=== PATIENT | male | born 1935 | race Two or more races ===

== ENCOUNTER 2016-07-20 13:10 | Inpatient (IN) | payer MEDICARE, BC ==
[~2016-07-20] VITALS: Ht 175.3 cm; Wt 83.7 kg
--- NOTE | ~2016-07-20 | DS ---
PATIENT'S NAME: BAO MOON [facility] AGE: 81 Y [address] ROOM: [address] [place], [place] [address] LOCATION: GPCU ADMIT DATE: 07/15/2016 Discharge Summary DISCHARGE DATE: 07/20/2016 FAMILY PHYSICIAN: Anselmo Colmenares MD ATTENDING PHYSICIAN: Anselmo Colmenares This will also service the admission note for TCU. DISPOSITION: Transitional care unit. DIAGNOSES: Acute coronary syndrome with coronary artery disease, status post stent placement. SECONDARY DIAGNOSES: 1. Rhabdomyolysis. 2. Benign prostatic hyperplasia. 3. History of prostate cancer. 4. Hypertension. 5. Hyperlipidemia. Physicians following him while he is in TCU: Dr. Colmenares. Therapies: PT and OT were ordered. The patient is aware of situation. DISCHARGE MEDICATIONS: Include, 1. Aspirin 81 mg daily. 2. Vitamin D 4000 units p.o. daily. 3. Vitamin B12 at 1000 mcg daily. 4. Metoprolol tartrate 50 mg p.o. twice daily. 5. Sulfasalazine tablet 1000 mg twice daily, which is 2 of the 500s. 6. Tamsulosin 0.4 mg daily. 7. Brilinta 90 mg p.o. twice daily. 8. Trazodone 50 mg to 100 mg at night prior to bedtime. 9. Tylenol 650 every 4 hours as needed. 10. Benadryl 25 mg at night as needed. 11. Colace 100 mg p.o. twice daily as needed. 12. Nitrostat 0.4 mg sublingually p.r.n. as needed. 13. We will continue his normal vitamin D3 which is 4000 units p.o. daily. HISTORY OF PRESENT ILLNESS: The patient is a 27-year-old male, who was trying to get up out of bed and he had a fall. His son found him face first on the floor and was unable to get him up. He complained of some numbness on the right side of his body, especially his arm and also both legs. He said that has been going on for about the last 1 to 2 months, it was treated or evaluated in clinic without more to be a neuropathy type thing. He has had a slight cough, but no other complaints, denies any seizure activity. PATIENT'S NAME: BAO MOON [facility] AGE: 81 Y [address] ROOM: [address] [place], [place] [address] LOCATION: GPCU ADMIT DATE: 07/15/2016 Discharge Summary DISCHARGE DATE: 07/20/2016 FAMILY PHYSICIAN: Anselmo Colmenares MD ATTENDING PHYSICIAN: Anselmo Colmenares INITIAL LABORATORY DATA: His lactate was 5.2. Head CT was showed no acute process. Chest x-ray was normal. CBC showed a white count of 9100, hemoglobin 12.2, and 83% segs. CMS showed creatinine of 1.9, BUN of 22, GFR was 34. CPK was 932, CK-MB was 2.3. Troponin was 0.146. His thyroid was normal. ProBNP was 357, procalcitonin was 0.13, repeat CK was 2842. Troponin went up to 1.440, repeat lactate was down to 1.8. Urinalysis showed 250 blood, 3+ amorphous, otherwise clear. The patient was admitted to the hospital. Heparin was started due to the elevated troponin and Cardiology consultation was obtained. Physical therapy was consulted to evaluate the patient to treat his weakness. HOSPITAL COURSE: The patient was admitted as discussed and was diagnosed with an acute coronary syndrome, but also rhabdomyolysis. He was treated with IV hydration, his enzymes were monitored, Cardiology consultation was obtained. They ordered an echo along with carotid Doppler. The patient was placed on fall precautions. As I mentioned, the patient was hydrated with normal saline and a urine myoglobin was obtained. The patient's situation seemed to overall improve. I started seeing him on July 16. He had the elevated cardiac enzymes along with possible acute coronary syndrome. CT of his head did show ventriculomegaly and obviously that brought up the possibility of normal pressure hydrocephalus with the fact that he had the fall. We worked on hydrating the patient, controlling blood pressure. A PICC line was placed due to the fact that was a difficult to IV stick. His echo showed EF of 55% to 60%. He did have a hypernatremia that improved with gradual hydration. His acute care coronary injury and that was thought secondary to dehydration and his rhabdomyolysis. The patient's situation seemed to overall stabilize. We continue to follow his lab work. We got PT and OT involved with the patient. The patient then underwent a nuclear stress test. Stress test was positive, so they elected to proceed with a cath, his kidney function had returned to normal. He was pre-hydrated for his cath. The patient underwent a cardiac catheterization. He was found to have a significant RCA lesion and a drug- eluting coronary stent was placed in his RCA. The patient overall tolerated this well. The patient was started on the Brilinta. We continued to monitor his cardiac status and patient's situation seemed to overall improve. We thought it best due to the fact that he was feeling a little weak, that we go ahead plan on dismissing him to transitional care unit to try to gain some strength. On 07/20/2016, he was transferred to the transitional care unit. The plan there is to help the patient gain back his strength and that so he can return to home. PATIENT'S NAME: BAO MOON [facility] AGE: 81 Y [address] ROOM: [address] [address] LOCATION: GPCU ADMIT DATE: 07/15/2016 Discharge Summary DISCHARGE DATE: 07/20/2016 FAMILY PHYSICIAN: Anselmo Colmenares MD ATTENDING PHYSICIAN: Anselmo Colmenares MD DAS/modl /[id number] [facility] d: 08/18/162051 t: 09/13/16 1554, DISCHARGE SUMMARY
--- NOTE | ~2016-07-20 | DS ---
PATIENT'S NAME: BAO MOON [facility] AGE: 81 Y [address] ROOM: [address] [place], [place] [address] LOCATION: GPCU ADMIT DATE: 07/15/2016 Discharge Summary DISCHARGE DATE: 07/20/2016 FAMILY PHYSICIAN: Anselmo Colmenares MD ATTENDING PHYSICIAN: Anselmo Colmenares This will also service the admission note for TCU. DISPOSITION: Transitional care unit. DIAGNOSES: Acute coronary syndrome with coronary artery disease, status post stent placement. SECONDARY DIAGNOSES: 1. Rhabdomyolysis. 2. Benign prostatic hyperplasia. 3. History of prostate cancer. 4. Hypertension. 5. Hyperlipidemia. Physicians following him while he is in TCU: Dr. Colmenares. Therapies: PT and OT were ordered. The patient is aware of situation. DISCHARGE MEDICATIONS: Include, 1. Aspirin 81 mg daily. 2. Vitamin D 4000 units p.o. daily. 3. Vitamin B12 at 1000 mcg daily. 4. Metoprolol tartrate 50 mg p.o. twice daily. 5. Sulfasalazine tablet 1000 mg twice daily, which is 2 of the 500s. 6. Tamsulosin 0.4 mg daily. 7. Brilinta 90 mg p.o. twice daily. 8. Trazodone 50 mg to 100 mg at night prior to bedtime. 9. Tylenol 650 every 4 hours as needed. 10. Benadryl 25 mg at night as needed. 11. Colace 100 mg p.o. twice daily as needed. 12. Nitrostat 0.4 mg sublingually p.r.n. as needed. 13. We will continue his normal vitamin D3 which is 4000 units p.o. daily. HISTORY OF PRESENT ILLNESS: The patient is a 27-year-old male, who was trying to get up out of bed and he had a fall. His son found him face first on the floor and was unable to get him up. He complained of some numbness on the right side of his body, especially his arm and also both legs. He said that has been going on for about the last 1 to 2 months, it was treated or evaluated in clinic without more to be a neuropathy type thing. He has had a slight cough, but no other complaints, denies any seizure activity. PATIENT'S NAME: BAO MOON [facility] AGE: 81 Y [address] ROOM: [address] [place], [place] [address] LOCATION: GPCU ADMIT DATE: 07/15/2016 Discharge Summary DISCHARGE DATE: 07/20/2016 FAMILY PHYSICIAN: Anselmo Colmenares MD ATTENDING PHYSICIAN: Anselmo Colmenares INITIAL LABORATORY DATA: His lactate was 5.2. Head CT was showed no acute process. Chest x-ray was normal. CBC showed a white count of 9100, hemoglobin 12.2, and 83% segs. CMS showed creatinine of 1.9, BUN of 22, GFR was 34. CPK was 932, CK-MB was 2.3. Troponin was 0.146. His thyroid was normal. ProBNP was 357, procalcitonin was 0.13, repeat CK was 2842. Troponin went up to 1.440, repeat lactate was down to 1.8. Urinalysis showed 250 blood, 3+ amorphous, otherwise clear. The patient was admitted to the hospital. Heparin was started due to the elevated troponin and Cardiology consultation was obtained. Physical therapy was consulted to evaluate the patient to treat his weakness. HOSPITAL COURSE: The patient was admitted as discussed and was diagnosed with an acute coronary syndrome, but also rhabdomyolysis. He was treated with IV hydration, his enzymes were monitored, Cardiology consultation was obtained. They ordered an echo along with carotid Doppler. The patient was placed on fall precautions. As I mentioned, the patient was hydrated with normal saline and a urine myoglobin was obtained. The patient's situation seemed to overall improve. I started seeing him on July 16. He had the elevated cardiac enzymes along with possible acute coronary syndrome. CT of his head did show ventriculomegaly and obviously that brought up the possibility of normal pressure hydrocephalus with the fact that he had the fall. We worked on hydrating the patient, controlling blood pressure. A PICC line was placed due to the fact that was a difficult to IV stick. His echo showed EF of 55% to 60%. He did have a hypernatremia that improved with gradual hydration. His acute care coronary injury and that was thought secondary to dehydration and his rhabdomyolysis. The patient's situation seemed to overall stabilize. We continue to follow his lab work. We got PT and OT involved with the patient. The patient then underwent a nuclear stress test. Stress test was positive, so they elected to proceed with a cath, his kidney function had returned to normal. He was pre-hydrated for his cath. The patient underwent a cardiac catheterization. He was found to have a significant RCA lesion and a drug- eluting coronary stent was placed in his RCA. The patient overall tolerated this well. The patient was started on the Brilinta. We continued to monitor his cardiac status and patient's situation seemed to overall improve. We thought it best due to the fact that he was feeling a little weak, that we go ahead plan on dismissing him to transitional care unit to try to gain some strength. On 07/20/2016, he was transferred to the transitional care unit. The plan there is to help the patient gain back his strength and that so he can return to home. PATIENT'S NAME: BAO MOON [facility] AGE: 81 Y [address] ROOM: [address] [address] LOCATION: GPCU ADMIT DATE: 07/15/2016 Discharge Summary DISCHARGE DATE: 07/20/2016 FAMILY PHYSICIAN: Anselmo Colmenares MD ATTENDING PHYSICIAN: Anselmo Colmenares MD DAS/modl /[id number] CC: [facility] d: t: 08/21/16 0632, DISCHARGE SUMMARY
--- NOTE | ~2016-07-20 | DS ---
PATIENT'S NAME: BAO MOON [facility] AGE: 81 Y [address] ROOM: [address] [place], [place] [address] LOCATION: GPCU ADMIT DATE: 07/15/2016 Discharge Summary DISCHARGE DATE: 07/20/2016 FAMILY PHYSICIAN: Anselmo Colmenares MD ATTENDING PHYSICIAN: Anselmo Colmenares This will also service the admission note for TCU. DISPOSITION: Transitional care unit. DIAGNOSES: Acute coronary syndrome with coronary artery disease, status post stent placement. SECONDARY DIAGNOSES: 1. Rhabdomyolysis. 2. Benign prostatic hyperplasia. 3. History of prostate cancer. 4. Hypertension. 5. Hyperlipidemia. Physicians following him while he is in TCU: Dr. Colmenares. Therapies: PT and OT were ordered. The patient is aware of situation. DISCHARGE MEDICATIONS: Include, 1. Aspirin 81 mg daily. 2. Vitamin D 4000 units p.o. daily. 3. Vitamin B12 at 1000 mcg daily. 4. Metoprolol tartrate 50 mg p.o. twice daily. 5. Sulfasalazine tablet 1000 mg twice daily, which is 2 of the 500s. 6. Tamsulosin 0.4 mg daily. 7. Brilinta 90 mg p.o. twice daily. 8. Trazodone 50 mg to 100 mg at night prior to bedtime. 9. Tylenol 650 every 4 hours as needed. 10. Benadryl 25 mg at night as needed. 11. Colace 100 mg p.o. twice daily as needed. 12. Nitrostat 0.4 mg sublingually p.r.n. as needed. 13. We will continue his normal vitamin D3 which is 4000 units p.o. daily. HISTORY OF PRESENT ILLNESS: The patient is a 27-year-old male, who was trying to get up out of bed and he had a fall. His son found him face first on the floor and was unable to get him up. He complained of some numbness on the right side of his body, especially his arm and also both legs. He said that has been going on for about the last 1 to 2 months, it was treated or evaluated in clinic without more to be a neuropathy type thing. He has had a slight cough, but no other complaints, denies any seizure activity. PATIENT'S NAME: BAO MOON [facility] AGE: 81 Y [address] ROOM: [address] [place], [place] [address] LOCATION: GPCU ADMIT DATE: 07/15/2016 Discharge Summary DISCHARGE DATE: 07/20/2016 FAMILY PHYSICIAN: Anselmo Colmenares MD ATTENDING PHYSICIAN: Anselmo Colmenares INITIAL LABORATORY DATA: His lactate was 5.2. Head CT was showed no acute process. Chest x-ray was normal. CBC showed a white count of 9100, hemoglobin 12.2, and 83% segs. CMS showed creatinine of 1.9, BUN of 22, GFR was 34. CPK was 932, CK-MB was 2.3. Troponin was 0.146. His thyroid was normal. ProBNP was 357, procalcitonin was 0.13, repeat CK was 2842. Troponin went up to 1.440, repeat lactate was down to 1.8. Urinalysis showed 250 blood, 3+ amorphous, otherwise clear. The patient was admitted to the hospital. Heparin was started due to the elevated troponin and Cardiology consultation was obtained. Physical therapy was consulted to evaluate the patient to treat his weakness. HOSPITAL COURSE: The patient was admitted as discussed and was diagnosed with an acute coronary syndrome, but also rhabdomyolysis. He was treated with IV hydration, his enzymes were monitored, Cardiology consultation was obtained. They ordered an echo along with carotid Doppler. The patient was placed on fall precautions. As I mentioned, the patient was hydrated with normal saline and a urine myoglobin was obtained. The patient's situation seemed to overall improve. I started seeing him on July 16. He had the elevated cardiac enzymes along with possible acute coronary syndrome. CT of his head did show ventriculomegaly and obviously that brought up the possibility of normal pressure hydrocephalus with the fact that he had the fall. We worked on hydrating the patient, controlling blood pressure. A PICC line was placed due to the fact that was a difficult to IV stick. His echo showed EF of 55% to 60%. He did have a hypernatremia that improved with gradual hydration. His acute care coronary injury and that was thought secondary to dehydration and his rhabdomyolysis. The patient's situation seemed to overall stabilize. We continue to follow his lab work. We got PT and OT involved with the patient. The patient then underwent a nuclear stress test. Stress test was positive, so they elected to proceed with a cath, his kidney function had returned to normal. He was pre-hydrated for his cath. The patient underwent a cardiac catheterization. He was found to have a significant RCA lesion and a drug- eluting coronary stent was placed in his RCA. The patient overall tolerated this well. The patient was started on the Brilinta. We continued to monitor his cardiac status and patient's situation seemed to overall improve. We thought it best due to the fact that he was feeling a little weak, that we go ahead plan on dismissing him to transitional care unit to try to gain some strength. On 07/20/2016, he was transferred to the transitional care unit. The plan there is to help the patient gain back his strength and that so he can return to home. PATIENT'S NAME: BAO MOON [facility] AGE: 81 Y [address] ROOM: [address] [address] LOCATION: GPCU ADMIT DATE: 07/15/2016 Discharge Summary DISCHARGE DATE: 07/20/2016 FAMILY PHYSICIAN: Anselmo Colmenares MD ATTENDING PHYSICIAN: Anselmo Colmenares MD DAS/modl /[id number] CC: [facility] d: t: 08/21/16 0634, DISCHARGE SUMMARY
--- NOTE | ~2016-07-20 | DS ---
PATIENT'S NAME: SARAI [facility] AGE: 81 Y [address] ROOM: [place] [address] LOCATION: [facility] ADMIT DATE: 07/20/2016 Discharge Summary DISCHARGE DATE: 07/23/2016 FAMILY PHYSICIAN: Kary Ortiz MD ATTENDING PHYSICIAN: Anselmo Colmenares DISCHARGE DIAGNOSES: 1. Status post acute coronary syndrome, status post stent placement. 2. Rhabdomyolysis with weakness. 3. Fall. 4. History of prostate cancer. 5. Hypertension. 6. Hyperlipidemia. FOLLOWUP: Follow up is with Dr. Colmenares in 10-14 days and Cardiology in 2 weeks. DISCHARGE MEDICATIONS: Include: 1. Aspirin 81 mg daily. 2. Vitamin D3 4000 units daily. 3. Vitamin B12 1000 mcg daily. 4. Metoprolol tartrate 50 mg twice daily. 5. Sulfasalazine 500 mg 2 of them twice daily. 6. Tamsulosin 0.4 mg daily in the p.m. 7. Brilinta 90 mg twice daily. 8. Trazodone 50-100 mg p.o. at h.s. as needed for sleep. 9. Tylenol 650 every 4-6 hours as needed for pain. HISTORY OF PRESENT ILLNESS: The patient was initially admitted to the acute care side of the hospital and diagnosed with acute coronary syndrome and ultimately ended up getting a stent placed in his RCA, it was a drug-eluting stent. He was placed on Brilinta and a baby aspirin after this. He also during his acute stay was diagnosed with rhabdomyolysis which they thought was secondary to his fall. This did improve over time. He was initially hydrated, and once his cardiac situation was stable, he was transferred to transitional care unit to continue to work on recovery from the rhabdomyolysis with muscle weakness. The patient's situation turned around rapidly in transitional care unit. He made great progress every day with PT and OT and on 07/23/2016 was ready to go home with the above-mentioned medicines. CONDITION ON DISCHARGE: Good. He is to continue outpatient therapy. Follow up is as mentioned above. PATIENT'S NAME: SARAI [facility] AGE: 81 Y [address] ROOM: [place] [address] LOCATION: [facility] ADMIT DATE: 07/20/2016 Discharge Summary DISCHARGE DATE: 07/23/2016 FAMILY PHYSICIAN: Kary Ortiz MD ATTENDING PHYSICIAN: Anselmo Colmenares MD SANDHYA PRINGLE/kavithal /[id number] d: 08/18/16 2306 t: 09/13/16 1551, DISCHARGE SUMMARY
[~2016-07-20 13:10] MED LIST: DESYREL50 MG PO; SULFASALAZINE500 M1 PO; TOPROL XL 5050 MG PO; VITAMIN B-121000 MCG PO; VITAMIN D-32000 UNI1 PO
--- NOTE | 2016-07-20 14:41 | NUR ---
D: Nursing Admission Summary From PCU I: Nursing interventions provided to support the patient's individual plan of care R: MOBILITY-- 1 assist. May use walker if needed. Good stability. NUTRITION-- Cardiac diet, decent appetite. SKIN/INCISIONS/WOUNDS-- Multiple abrasions to head, arms, knees, leg. All scabbed and healing in different stages. SELF CARES-- Able to do most all self care activities, may need some set up BOWEL/BLADDER-- Continent of bowel and bladder. Last BM today. Needs to stand to use urinal to start stream. RESPIRATORY-- Clear and diminished throughout, may have oxygen if saturations drop below 90%. PAIN-- No complaints of pain at this time. PSYCHOSOCIAL-- Patient takes medicine to help sleep, good support system. COGNITION-- Alert and oriented x 3. SPECIAL NEEDS-- BLEEDING-- No issues at this time. SENSORY IMPAIRMENTS/DENTAL NEEDS: Glasses to help with reading. TEACHING NEEDS-- INFECTION CONCERNS: Right radial access for stent RISK FOR ELOPEMENT: none NEED FOR BED/MOVEMENT ALARM: per protocol DISMISSAL PLANS: home with . Other: P: Current plan of care reviewed and updated 07/20/16 LUCIA RIGGS
--- NOTE | 2016-07-21 04:15 | NUR ---
A/O x 3. Irritable. Cooperative. IV H.L. RFA. GEOVANNA - 2 LUMEN PICC. SCD. TEDS. Cardiac diet. Doctor in to see patient. Orders written. Lab for pre-albumin ordered and drawn this morning. Continent of B/B. Urgency symptoms for urination. Rested well.
--- NOTE | 2016-07-21 12:14 | NUR ---
Significant Event: Alert/oriented. VSS. Mod I in room per PT. Left PICC intact, no complications. SL to right FA, flushing. Denies pain. Able to make needs known. Follow up:
--- NOTE | 2016-07-22 01:53 | NUR ---
Significant Event: Alert & oriented. MOD I in room. Rt FA saline lock and LT upper arm PICC line. Is ready to go home. VSS. Wears Nora hose. EATS well. Follow up:
--- NOTE | 2016-07-22 13:22 | NUR ---
Significant Event: Alert/oriented. VSS. Mod I in room. Left picc intact, no complications. Tylenol this am for headache. Wants to go home tariq. Follow up:
--- NOTE | 2016-07-22 22:52 | NUR ---
Significant Event: Alert & oriented. MOD I in room. Pleasant & cooperative. Saline lock to rt FA that flushes well. PIcc to lt upper arm and flushes well with good blood return. VSS. Wears JELENA hose and leg pumps. Denies pain. HE wants to go home saturday! Acitivity gregg, I see no reason why he couldn't. He gets along well. EAts well. He wants to see the saturday am to see about going home. Follow-up: See this morning.
[2016-07-23 05:35] LABS: HEMOGLOBIN 10.5 g/dL (11.0-16.0); MCH 28.5 pg (27.0-34.0); MCHC 32.8 gm/dL (32.0-36.5); MCV 86.7 fl (83.0-98.0); MPV 9.7 fl (9.4-12.4); RBC 3.69 M/uL (3.50-5.50); RDW-CV 13.3 % (11.9-14.6); WBC 4.2 K/uL (4.0-11.0)
[2016-07-23 05:51] LABS: ANION GAP 13.9 (10.0-19.0); BLOOD UREA NITROGEN 10 mg/dL (6-24); CHLORIDE 104 mMol/L (96-110); CO2 25 mMol/L (22-32); CPK 349 IU/L (35-332); ESTIMATED GFR (MDRD EQUATION) > 60; POTASSIUM 3.9 mMol/L (3.7-5.1); SODIUM 139 mMol/L (135-145)
[2016-07-23 05:55] LABS: PLATELET COUNT 240 K/uL (150-450)
[2016-07-23 06:21] LABS: ABSOLUTE NEUTROPHIL CT (ANC) 2.7 K/uL (1.4-9.0); BANDED NEUTROPHILS % 1 %; LYMPHOCYTE # 0.9 K/uL (0.8-4.0); LYMPHOCYTE % 21 %; MONOCYTE # 0.4 K/uL (0.0-1.0); SEGMENTED NEUTROPHIL # 2.7 K/uL (1.4-9.0); SEGMENTED NEUTROPHIL % 63 %
--- NOTE | 2016-07-23 09:57 | NUR ---
D: Nursing Dismissal Summary I: Nursing interventions provided to support the patient's individual plan of care R: MOBILITY-- independent in room with cane NUTRITION-- Cardiac diet SKIN/INCISIONS/WOUNDS-- scattered bruises and abrasions to upper and lower extremities. SELF CARES-- able to perform self cares independently BOWEL/BLADDER-- Continent of bowel and bladder RESPIRATORY-- on room air PAIN-- no complaints PSYCHOSOCIAL-- good family support COGNITION-- alert and oriented SPECIAL NEEDS-- will have home health for physical therapy SENSORY IMPAIRMENTS/DENTAL NEEDS: wears glasses DISMISSAL PLANS: to home today with home health physical therapy Other: P: Current plan of care reviewed and updated Marlen Faith RN 07/23/16
[2016-07-23] MEDS ORDERED: ASPIRIN (CHILDR81 MG PO (10:25)
[2016-07-23] MEDS ORDERED: FLOMAX0.4 MG PO (10:26)
[2016-07-23] MEDS ORDERED: BRILINTA90 MG PO (10:28)
[2016-07-23] MEDS ORDERED: TYLENOL325 MG PO (10:29)
--- NOTE | 2016-07-23 10:30 | NUR ---
referral for [facility] upon d/c for PT. NEETU met with patient, and daughter Neda [phone]. patient had no preference for [facility] agency. NEETU contacted Caty with [facility] [phone], and referral relayed. faxed documentation to fax [phone]. family will obtain cane from [employer] or will purchase one from [employer]. plan d/c to home today with in [place], has a supportive family. have medicare and a supplemental policy.
[2017-02-28] MEDS ORDERED: FLORINEF0.1 MG PO (20:21)
== END 2016-07-23 11:30 | disposition disaster alternative care site (69) | DRG 949 ==
LOC: GSNF 13:10
PROVIDERS: ADMIT Obstetrics & Gynecology Obstetrics
DX: Z48.89 Encounter for other specified surgical aftercare (principal); M62.82 Rhabdomyolysis; I25.10 Atherosclerotic heart disease of native coronary artery without angina pectoris; N40.0 Benign prostatic hyperplasia without lower urinary tract symptoms; Z85.46 Personal history of malignant neoplasm of prostate; Z79.82 Long term (current) use of aspirin; Z91.81 History of falling
CPT/HCPCS: A9270

== ENCOUNTER 2017-02-02 06:06 | Observation (INO) | payer MEDICARE, BC ==
[~2017-02-02] VITALS: Ht 175.3 cm; Wt 77.4 kg
--- NOTE | ~2017-02-02 | ER ---
PATIENT'S NAME: [facility]AI [facility] AGE: 81 Y [address] ROOM: [place] [address] LOCATION: GPCU ADMIT DATE: 02/02/2017 ER/Outpatient Report DISCHARGE DATE: FAMILY PHYSICIAN: Anselmo Colmenares MD ATTENDING PHYSICIAN: Andreea Rush Time of Arrival: 0606 hours. Time of Evaluation: 0616 hours. IDENTIFICATION: An 81-year-old male. CHIEF COMPLAINT: Heart problems. HISTORY OF PRESENT ILLNESS: The patient is an 81-year-old male who woke up this morning feeling dizzy, had a spinning sensation and fell to the floor. He did not hit his head. No loss of consciousness. No injuries from the fall. He has been dizzy off and on for the last couple of months and actually saw Dr. Colmenares recently for this. It was recommended that he stop his trazodone which he has not completely but he has decreased it from 2 to 1 tablet. He had nausea and weakness this morning. No chest pain, some shortness of breath. No diaphoresis. ALLERGIES: TO GRAPEFRUIT. CURRENT MEDICATIONS: 1. Brilinta 90 mg b.i.d. 2. Vitamin D3 2000 international units 2 tablets daily. 3. Atorvastatin 40 mg at h.s. 4. Enteric-coated aspirin 81 mg daily. 5. Tamsulosin 0.4 mg daily. 6. Metoprolol 50 mg b.i.d. 7. Sulfasalazine ER 500 mg b.i.d. 8. Trazodone 50 mg 1 to 2 at h.s. 9. Vitamin B12 1000 mcg daily. MEDICAL PROBLEMS: Hyperlipidemia, hypertension, coronary artery disease, glucose intolerance, prostate cancer, ulcerative colitis. PAST SURGICAL HISTORY: Prostate surgery in 2001. PATIENT'S NAME: SARAI [facility] AGE: 81 Y [address] ROOM: [place] [address] LOCATION: GPCU ADMIT DATE: 02/02/2017 ER/Outpatient Report DISCHARGE DATE: FAMILY PHYSICIAN: Anselmo Colmenares MD ATTENDING PHYSICIAN: Andreea Rush SOCIAL HISTORY: The patient lives with his here in [place]. He is retired. Tobacco use, denies. Alcohol use, denies. Drug use, denies. REVIEW OF SYSTEMS: All systems reviewed and negative other than what is noted in the HPI. PHYSICAL EXAMINATION: VITAL SIGNS: Weight 78 kg, blood pressure 163/70, pulse 72, respirations 20, temperature 97.1, sats 99% on room air. GENERAL: An 81-year-old male in mild distress with nausea. HEENT: Head: Normocephalic atraumatic. Ears: TMs translucent both ears. Eyes: Pupils equal and reactive to light and accommodation. Extraocular movements intact. No nystagmus. Nose: Mucosa pink. No lesions. Mouth: No lesions. Pharynx: Benign. NECK: Supple. No lymphadenopathy. No thyromegaly. No JVD. No carotid bruits. LUNGS: Clear to auscultation. Breath sounds are equal. No rhonchi, wheezes, or rales. HEART: Regular rate and rhythm. No murmur, rub, or gallop. ABDOMEN: Bowel sounds present. Soft, nondistended. No hepatosplenomegaly. No palpable masses. Nontender. SKIN: [place], warm, and dry. No lesions or rashes noted. NEURO: The patient is alert and oriented x4. Cranial nerves 2 through 12 grossly intact. Motor strength 5/5 throughout. Sensation is intact to light touch. Richie Coma Score is 15. EXTREMITIES: No lower extremity edema. No calf tenderness. EMERGENCY DEPARTMENT COURSE: An IV was initiated. The patient was given normal saline at 150 mL/h, Zofran 4 mg for nausea, meclizine 12.5 mg p.o. Sodium 140, potassium 3.8, chloride 106, CO2 of 21, BUN 13, creatinine 1.4, blood sugar 120. Liver enzymes normal. Cardiac enzymes negative x1. D-dimer 0.51. CBC within normal limits. ProBNP 153. Head CT no acute findings per Radiology. EKG normal sinus rhythm at 68 beats per minute. No acute ST elevation or depression. Repeat EKG at 0816 hours normal sinus rhythm at 64 beats per minute. No acute ST elevation or depression. No significant change from earlier EKG. Two-hour enzymes are negative. The patient did feel better at rest after the meclizine; however, when I did discuss this with Dr. Rush and we were going to discharge him, he did not tolerate that well with the movement. He got very nauseous again and was unsteady and dizzy. Also while he was sleeping, he did desat to 80%. We placed him on O2 at 2 L per nasal cannula, but then when weaned him off, his sats remained greater than 95% on room air. PATIENT'S NAME: BAO MOON [facility] AGE: 81 Y [address] ROOM: [place] [address] [facility] ADMIT DATE: 02/02/2017 ER/Outpatient Report DISCHARGE DATE: FAMILY PHYSICIAN: Anselmo Colmenares MD ATTENDING PHYSICIAN: Andreea Rush IMPRESSION: 1. Vertigo with persistent symptoms. 2. Hypoxia while at rest of uncertain etiology. PLAN: Admit. Observation per Dr. Rush who is on-call for Dr. Colmenares. NIECY TAYLOR MD CAR/modl /[id number] d: 02/02/172021 t: 02/11/17 0757, OUTPATIENT REPORT
--- NOTE | ~2017-02-02 | HP ---
PATIENT'S NAME: BAO MOON [facility] AGE: 81 Y [address] ROOM: [id number] [place], [place] [address] LOCATION: GPCU ADMIT DATE: 02/02/2017 History & Physical DISCHARGE DATE: FAMILY PHYSICIAN: Anselmo Colmenares MD ATTENDING PHYSICIAN: Andreea Rush DATE OF SERVICE: CHIEF COMPLAINT: Dizziness. HISTORY OF PRESENT ILLNESS: The patient is an 81-year-old male who presented to the emergency room this morning with dizziness. He was dizzy when he woke up and fell to the floor. He states his dizziness has been intermittent for the last couple of months, but definitely worse this morning. He had no injury with his fall and did not pass out or black out with the fall. He denies any chest pain, but does have a cardiac history. Denies any shortness of breath. No fever or chills. He has not had a cough. His dizziness seems to be worse with any sort of movement. He describes the room as spinning. His symptoms did improve in the ER with some IV fluids, Zofran, and meclizine, but they again worsened when trying to get up to leave the ER. So, we decided to admit him. His daughter reports no neurologic changes other than his dizziness. He has not noticed any slurred speech or focal deficits. PAST MEDICAL HISTORY: Adenoma on colonoscopy done in 2013, ulcerative colitis, CAD with an 80% to 90% mid RCA lesion, aspiration thrombectomy followed by drug-eluting stent to the mid RCA with recommendations to be on dual-antiplatelet therapy for a minimum of one year with RCA done on July 19, 2016, hypertension, history of prostate cancer, mixed dyslipidemia, prediabetes, and history of rhabdomyolysis in June 2016 after a fall. PAST SURGICAL HISTORY: Heart catheterization on July 19, 2016, with a PCI to the mid RCA done at that time; prostate surgery done in 2001. MEDICATIONS: 1. Aspirin 81 mg a day. 2. Atorvastatin 40 mg daily. 3. Benadryl two 25 mg tablets at bedtime as needed. 4. Brilinta 90 mg p.o. b.i.d. 5. Metoprolol tartrate 50 mg p.o. b.i.d. 6. Sulfasalazine 500 mg 2 tablets p.o. b.i.d. 7. Tamsulosin 0.4 mg 2 tablets daily. PATIENT'S NAME: BAO MOON [facility] AGE: 81 Y [address] ROOM: [id number] [place], [place] [address] [facility] ADMIT DATE: 02/02/2017 History & Physical DISCHARGE DATE: FAMILY PHYSICIAN: Anselmo Colmenares MD ATTENDING PHYSICIAN: Andreea Rush 8. Trazodone 50 mg at bedtime. 9. Vitamin B12 at 1000 mcg daily. 10. Vitamin D3 at 4000 international units daily. FAMILY HISTORY: Noncontributory. ALLERGIES: NO KNOWN DRUG ALLERGIES. SOCIAL HISTORY: He lives at home. Nonsmoker. No alcohol use. His daughter is here with him today. PHYSICAL EXAMINATION: GENERAL: He is awake, alert, and oriented. No signs of distress. Majority of his history is obtained from his daughter. MOUTH: Mucous membranes moist. NECK: Supple without lymphadenopathy. HEART: Regular rate and rhythm without murmur. LUNGS: Clear to auscultation throughout. No crackles or wheezing heard. ABDOMEN: Soft and nondistended. GENITOURINARY: Not done. EXTREMITIES: No peripheral edema noted. NEUROLOGIC: Cranial nerves 2 through 12 grossly intact. No focal neurologic deficits noted. There is no nystagmus noted. He has good movement of all 4 extremities and good strength throughout all 4 extremities. LABORATORY DATA: WBC 8.1, hemoglobin 12.5, and platelets 192. PTT 30, PT 9.9, and INR is 0.94. D-dimer 0.51. Sodium 140, potassium 3.8, chloride 106, bicarbonate 21, blood sugar 120, BUN 13, and creatinine 1.4 (it was 1.3 at [facility] recently). Alkaline phosphatase 78, AST 17, and ALT 15. GFR 47. Magnesium 2.2. First set of cardiac enzymes done at 0625 hours shows CPK 91, CK-MB less than 0.5, and troponin less than 0.04. Second set of cardiac enzymes done at 0824 hours shows CPK 85, CK-MB 0.7, and troponin less than 0.04. ProBNP 153. Chest x-ray shows no acute process. Head CT without contrast shows mild periventricular small vessel ischemic change and generalized parenchymal volume loss with no evidence of an acute process. Brain MRI is pending. ASSESSMENT: Dizziness with falls. Most likely, benign positional vertigo. Head CT shows no acute bleed. Brain MRI is pending. We will have Physical Therapy evaluate the patient for Andrea-Hallpike maneuvers. We will recheck BMP in the morning. PATIENT'S NAME: BAO MOON [facility] AGE: 81 Y [address] ROOM: [place] [address] [facility] ADMIT DATE: 02/02/2017 History & Physical DISCHARGE DATE: FAMILY PHYSICIAN: Anselmo Colmenares MD ATTENDING PHYSICIAN: Andreea Rush We will continue with IV fluids, Zofran, and meclizine. MD MARGIE STEPHEN/modl /[id number]: [id number] T: [id number] HISTORY & PHYSICAL
[~2017-02-02 06:06] MED LIST changes: +ASPIRIN (CHILDR81 MG PO; +BRILINTA90 MG PO; +FLOMAX0.4 MG PO; +TYLENOL325 MG PO
[2017-02-02 06:34] LABS: BASOPHIL % 0.2 %; EOSINOPHIL % 0.4 %; HEMATOCRIT 36.9 % (33.0-50.0); HEMOGLOBIN 12.5 g/dL (11.0-16.0); IMMATURE GRANULOCYTE % 0.4 %; LYMPHOCYTE # 1.7 K/uL (0.8-4.0); LYMPHOCYTE % 20.8 %; MCH 29.9 pg (27.0-34.0); MCHC 33.9 gm/dL (32.0-36.5); MCV 88.3 fl (83.0-98.0); MONOCYTE # 0.6 K/uL (0.0-1.0); MONOCYTE % 6.8 %; MPV 9.7 fl (9.4-12.4); NEUTROPHIL # (ANC) 5.8 K/uL (1.4-9.0); NEUTROPHIL % 71.4 %; NRBC % 0 /100WBC (0-0.00); PLATELET COUNT 192 K/uL (150-450); RBC 4.18 M/uL (3.50-5.50); RDW-CV 13.6 % (11.9-14.6); WBC 8.1 K/uL (4.0-11.0)
[2017-02-02 06:42] LABS: INR - (THERAPEUTIC) 0.94 (0.92-1.07); PROTIME 9.9 SECONDS (9.8-11.4); PTT 30 SECONDS (25-32)
[2017-02-02 06:54] LABS: ALBUMIN 3.8 gm/dL (3.5-5.0); ALK PHOS 78 IU/L (33-138); ALT 15 IU/L (12-78); ANION GAP 16.8 (10.0-19.0); AST 17 IU/L (10-40); BLOOD UREA NITROGEN 13 mg/dL (6-24); CALCIUM 9.3 mg/dL (8.5-10.5); CHLORIDE 106 mMol/L (96-110); CO2 21 mMol/L (22-32); CPK 91 IU/L (35-332); CREATININE 1.4 mg/dL (0.6-1.3); MAGNESIUM 2.2 mg/dL (1.8-2.6); POTASSIUM 3.8 mMol/L (3.7-5.1); SODIUM 140 mMol/L (135-145); TOTAL BILIRUBIN 0.5 mg/dL (0.0-1.5); TOTAL PROTEIN 7.6 g/dL (6.0-8.4)
[2017-02-02 08:54] LABS: CPK 85 IU/L (35-332)
[2017-02-02] MEDS ORDERED: LOPRESSOR25 MG PO (12:14)
[2017-02-02] MEDS ORDERED: LIPITOR40 MG PO (12:16)
--- NOTE | 2017-02-02 16:17 | NUR ---
PATIENT ADMITED FOR DIZZINESS. PT. REPORTED DIZZINESS THIS MORNING WHEN GETTING UP OUT OF BED, AND FELL DOWN. NO REPORTS OF SYNCOPE OR INJURY. CAME IN [facility] ED. VS-66, 151/72, 98.4, 18, 99% ON ROOM AIR. IV STARTED TO RIGHT FA. NO COMPLAINTS OF PAIN, JUST DIZZINESS WITH MOVEMENT AND LAYING IN BED. DR. BENNETT NOTIFIED OF PATIENT BEING ON PCU. CT OF HEAD WAS NEGATIVE. ZOFRAN AND ANTIVERT GIVEN IN ED.
--- NOTE | 2017-02-02 16:56 | NUR ---
Significant Event: A/OX3, FORGETFUL AT TIMES. HOME MEDS STARTED. VSS ON ROOM AIR. MRI OF HEAD DONE TODAY, WAITING ON RESULTS. IV TO R)FA HAS NS @ 150mL/HR. NO PAIN, JUST COMPLAINTS OF DIZZINESS. PT. GETS UP 1 ASSIST TO BATHROOM, UNSTEADY. PHYSICAL THERAPY ASSESSED PT. FOR VERTIGO & IT WAS NEGATIVE, ORTHOSTATICS BP DONE, WHICH WAS POSTIVE. ZOFRAN GIVEN @ 1636 FOR NAUSEA. PT. IS VOMIT X1. ANTIVERT GIVEN X1. FAMILY HERE. Follow up: CONTINUE WITH POC.
[2017-02-03 05:05] LABS: ANION GAP 8.7 (10.0-19.0); CALCIUM 8.4 mg/dL (8.5-10.5); CREATININE 1.2 mg/dL (0.6-1.3)
[2017-02-03 05:06] LABS: POTASSIUM 4.7 mMol/L (3.7-5.1)
--- NOTE | 2017-02-03 05:35 | NUR ---
SIGNIFICANT EVENT: A/O X 3 FORGETFUL AT TIMES. STILL VERY DIZZY WHEN GETTING OOB SO HAS BEEN USING URINAL AT BEDSIDE. LAST SBP AT 0300 WAS IN THE UPPER 90'S ALL OTHER VSS.
--- NOTE | 2017-02-03 16:01 | NUR ---
Significant Event: A/OX3, VSS ON RA. ORTHOS POSITIVE THIS AM, RECHECKED AGAIN @ 0956 AFTER ANTIVERT GIVEN @ 0800 AND ORTHOS THEN WERE NEGATIVE. PHYSICAL THERAPY WORKED WITH PT. TODAY. DIZZINESS MUCH BETTER TODAY. POSSIBLE D/C TO HOME IN AM. COLACE STARTED TODAY. SM BM X1. PT. GETS UP 1 ASSIST WITH GAIT BELT TO BATHROOM. FAMILY HERE ON/OFF. ANTIVERT GIVEN X2 LAST @ 1447. HOLDING METOPROLOL AND FLOMAX. Follow up: CONTINUE WITH POC.
--- NOTE | 2017-02-04 05:10 | NUR ---
Significant event: A/O x 3. Up with 1 assist, still dizzy but is much better than he was yesterday. VSS no c/o pain throughout shift. Voids per urinal at bedside or in the bathroom. Walked the porras x 1 last noc and tolerated it well. Follow-up: discharge home today.
[2017-02-04] MEDS ORDERED: MECLIZINE HCL25 MG PO (07:21)
[2017-02-04] MEDS ORDERED: ZOFRAN8 MG PO (07:25)
--- NOTE | 2017-02-04 09:41 | NUR ---
55 Call from LUCIA Webster letting me know that Ton was going to be dismissing today and doctor would like for him to go home with [facility]. Let her know that I would be up shortly to talk with Ton and family and set up HHC. 929 Introduced self and CM role to Ton, his and his daughter who were all at bedside. I am familiar with them from previous stay at [facility] earlier in the year. Ton lives at home in [place] with his , daughter checks in on him often. Explained to them that MD had rounded and done dismissal paperwork, but would like for him to have HHC upon dismissal. In reviewind previous CM/SW notes, it appears that he was with [facility] last time. I talked with Ton and family about going with them again and they would like to do this. Let them know that I would get that all set up. Talked about where he can get any DME such as a FWW. Offered [facility] and other DME places. Daughter says that she will probably just get one from [facility] as that is where they got his cane from last time. Let her know that this was fine. No other questions, needs or concerns. Called [facility], [phone] to make the referral on Ton. She says that they will be happy to take him back on services. Gathered all dismissal paperwork, including the completed F2F and faxed it over to [facility] [phone] and asked that they follow up with him as soon as Saturday. CM to continue to follow and assist. Plan home with [facility].
[2017-02-04] MEDS ORDERED: COLACE100 MG PO (10:00)
--- NOTE | 2017-02-04 11:25 | NUR ---
PATIENT A/OX3, FORGETFUL AT TIMES, WILL ASK QUESTIONS MULTIPLE TIMES. VSS ON ROOM AIR. PT. GETS UP SBA IN ROOM. WORKED WITH PHYSICAL THERAPY TODAY BEFORE DISCHARGE, DID VERTIGO EXCERISES, WALKED IN HALLWAY. DISMISSAL INSTRUCTIONS, NEW MEDICATION AND DIZZINESS HANDOUTS GIVEN TO DAUGHTER AND GONE OVER WITH HER AND PATIENT, NO FURTHER QUESTIONS AT THIS TIME. IV REMOVED FROM R)FA WITHOUT DIFFICULTLY. ALL BELONGINGS SENT HOME WITH PATIENT.
[2017-02-28] MEDS ORDERED: FLORINEF0.1 MG PO (20:21)
== END 2017-02-04 10:05 | disposition disaster alternative care site (69) ==
LOC: GMED 06:06 → GPCU 10:03
PROVIDERS: Family Medicine; ADMIT Family Medicine
DX: R42 Dizziness and giddiness (principal); I25.10 Atherosclerotic heart disease of native coronary artery without angina pectoris; I10 Essential (primary) hypertension; E78.2 Mixed hyperlipidemia; K51.90 Ulcerative colitis, unspecified, without complications; Z85.46 Personal history of malignant neoplasm of prostate; Z95.5 Presence of coronary angioplasty implant and graft; Z90.79 Acquired absence of other genital organ(s); Z79.899 Other long term (current) drug therapy
CPT/HCPCS: A9270; A9577; G0378; G8978; G8979; G8980; J2405; J7030; J7050